=== PATIENT | male | born 1990 | race Caucasian/White ===

== ENCOUNTER 2024-03-18 06:08 | Day surgery (SDC) | payer OTHER ==
[~2024-03-18] VITALS: Ht 167.6 cm; Wt 54.4 kg
[2024-03-18] MEDS ORDERED: fentaNYL citrate 0.05 MG/ML VIAL ONE (07:57)
[2024-03-18] MEDS ORDERED: MIDAZOLAM 2 MG/2 ML VIAL ONE (07:58)
[2024-03-18] MEDS: MIDAZOLAM 2 MG/2 ML VIAL IVP ONE (08:37)
== END 2024-03-18 09:50 | disposition home or self-care (01) ==
LOC: MDS 06:08 → MMU 06:29 → MDS 09:50
PROVIDERS: ATTEND Internal Medicine Gastroenterology
DX: R10.13 Epigastric pain (principal); F41.9 Anxiety disorder, unspecified; Z80.0 Family history of malignant neoplasm of digestive organs; Z98.890 Other specified postprocedural states
CPT/HCPCS: 36415; 43239; 86677; J2250; J3010